=== PATIENT | female | born 1960 | race American Indian/Alaskan Native ===

== ENCOUNTER 2018-06-22 09:15 | Day surgery (SDC) | payer BC ==
[2018-06-20 13:28] VITALS: BMI 34.7
[2018-06-22] MEDS ORDERED: Sodium Chloride 0.9% 1,000 ML IV SCH (10:00)
[2018-06-22] MEDS ORDERED: Propofol 10 mg/ml Inj (20 ML) ONE (14:24)
[2018-06-22 14:56] VITALS: O2SAT 100
[2018-06-22 16:11] VITALS: BP 134/87; PULSE 60; RESP 16; TEMP 98
== END 2018-06-22 16:25 | disposition home or self-care (01) ==
LOC: ENDO 09:15
PROVIDERS: ATTEND Internal Medicine Gastroenterology
DX: K31.1 Adult hypertrophic pyloric stenosis (principal); K29.50 Unspecified chronic gastritis without bleeding
CPT/HCPCS: 43239; 43245; 88305; 88312; C1726 ×2; J2001; J2704; J7030; J7040

== ENCOUNTER 2018-08-27 12:03 | Day surgery (SDC) | payer BC ==
[2018-08-22 09:16] VITALS: BMI 34.9
[2018-08-27] MEDS ORDERED: Midazolam 2 MG/2 ML VIAL ONE (13:22)
[2018-08-27] MEDS ORDERED: Propofol 10 mg/ml Inj (20 ML) ONE ×2 (13:22)
[2018-08-27] MEDS ORDERED: Sodium Chloride 0.9% 1,000 ML IV SCH (14:30)
[2018-08-27 15:52] VITALS: BP 125/71; PULSE 65; RESP 16; TEMP 97.9; O2SAT 97
== END 2018-08-27 15:40 | disposition home or self-care (01) ==
LOC: ENDO 12:03
PROVIDERS: ATTEND Internal Medicine Gastroenterology
DX: K31.1 Adult hypertrophic pyloric stenosis (principal); K29.70 Gastritis, unspecified, without bleeding
CPT/HCPCS: 43245; J2250; J2704; J7030